=== PATIENT | female | born 1965 | race Caucasian/White ===

== ENCOUNTER 2016-04-29 11:43 | Inpatient (IN) | payer SELFPAY ==
[~2016-04-29] VITALS: Ht 165.1 cm; Wt 70.8 kg
[2016-04-29 12:14] LABS: BASOPHILS % (AUTO) 0.5 % (0.0-2.0); EOSINOPHILS % (AUTO) 0.9 % (1.0-6.0); HEMATOCRIT 42.7 % (36-46); HEMOGLOBIN 13.9 g/dL (12.0-16.0); LYMPHOCYTES # (AUTO) 1.9 K/uL (1.0-4.8); LYMPHOCYTES % (AUTO) 18.8 % (22.0-44.0); MEAN CORPUSCULAR HEMOGLOBIN 29.3 pg (26.0-34.0); MEAN CORPUSCULAR HGB CONC 32.6 G/dL (31.0-37.0); MEAN CORPUSCULAR VOLUME 90 fL (80-100); MONOCYTES # (AUTO) 0.4 K/uL (0.1-1.0); MONOCYTES % (AUTO) 3.5 % (2.0-9.0); NEUTROPHILS # (AUTO) 7.7 K/uL (1.8-7.7); NEUTROPHILS % (AUTO) 76.3 % (40.0-70.0); PLATELET COUNT (AUTO) 259 K/uL (150-450); RED BLOOD CELL COUNT(AUTO) 4.75 MIL/uL (4.00-5.20); RED CELL DISTRIBUTION WIDTH 12.7 % (11.5-14.5)
[2016-04-29 12:49] LABS: ANION GAP 12 mmol/L (8-16); CARBON DIOXIDE 25 mmol/L (22-29); CHLORIDE 103 mmol/L (98-107); CREATININE 0.88 mg/dL (0.60-1.30); GLOMERULAR FILTR. RATE CALC > 60 mL/min (>60); POTASSIUM 3.5 mmol/L (3.5-5.1); SODIUM SERUM 140 mmol/L (136-145); UREA NITROGEN, BLOOD 19 mg/dL (7-18)
[2016-04-29 12:56] LABS: ALANINE AMINOTRANSFERASE 22 U/L (12-78); ALBUMIN 4.4 g/dL (3.4-5.0); ASPARTATE AMINOTRANSFERASE 18 U/L (15-37); BILIRUBIN,TOTAL 1.6 mg/dL (0.1-1.0); TOTAL PROTEIN, SERUM 8.6 g/dL (6.4-8.2)
[2016-04-29] MEDS ORDERED: LORazepam 1 MG TABLET PO ONE (19:15)
[2016-04-29] MEDS ORDERED: LORazepam 2 MG TABLET PO PRN (19:30)
[2016-04-29] MEDS ORDERED: HALOPERIDOL 5 MG TABLET PO PRN (19:30)
[2016-04-29] MEDS ORDERED: ZOLPIDEM TARTRATE 10 MG TABLET PO PRN (19:30)
[2016-04-29 22:01] LABS: APPEARANCE,URINE CLEAR (CLEAR); GLUCOSE, URINE (UA) NEGATIVE (NEGATIVE); KETONES,URINE TRACE mg/dL (NEGATIVE); LEUKOCYTE ESTERASE ,URINE NEGATIVE (NEGATIVE); OCCULT BLOOD,URINE TRACE (NEGATIVE); PH,URINE 6.5 (5.0-8.0); PROTEIN,URINE NEGATIVE (NEGATIVE)
[2016-04-29 22:02] LABS: ADD UA MICROSCOPIC YES
[2016-04-29 22:13] LABS: RBC,URINE 0-2 /HPF (0-2); SQUAMOUS EPITHELIAL CELL,UR Rare /LPF (None Seen); WBC,URINE 0-2 /HPF (0-5)
[2016-04-29 22:15] VITALS: BP 166/114
[2016-04-29] MEDS ORDERED: INFLUENZA VIRUS VACCINE QVS 2016-17 (3YR+)/PF 60 MCG/0.5 ML SYRINGE IM ONE (22:15)
[2016-04-29 22:44] VITALS: BP 195/115
[2016-04-29] MEDS ORDERED: CloNIDine HCL 0.1 MG TABLET PO ONE (22:45)
[2016-04-30 06:14] VITALS: BP 147/90
[2016-04-30 08:30] VITALS: BP 149/95
[2016-04-30] MEDS: AmLODIPine BESYLATE 2.5 MG TABLET PO SCH (09:40)
[2016-04-30 17:27] VITALS: BP 145/95
[2016-04-30] MEDS ORDERED: ACETAMINOPHEN 325 MG TABLET PO PRN (19:30)
[2016-04-30] MEDS ORDERED: IBUPROFEN 400 MG TABLET PO PRN (19:30)
[2016-05-01 07:35] LABS: CHOL/HDL RATIO 2.2 (3.9-5.7); THYROID STIMULATING HORMONE 1.74 uIU/mL (0.36-3.74)
[2016-05-01 07:39] LABS: HEMOGLOBIN A1C 5.6 % (4.5-6.2)
[2016-05-01] MEDS: AmLODIPine BESYLATE 2.5 MG TABLET PO SCH (09:29)
[2016-05-01 10:51] VITALS: BP 146/95
[2016-05-01 20:05] VITALS: BP 151/78
[2016-05-01] MEDS: RisperiDONE 0.5 MG TABLET PO SCH (20:44)
[2016-05-02 08:00] VITALS: BP 155/99
[2016-05-02] MEDS: AmLODIPine BESYLATE 2.5 MG TABLET PO SCH (08:15)
[2016-05-02 16:17] VITALS: BP 131/81
[2016-05-02] MEDS: RisperiDONE 0.5 MG TABLET PO SCH (20:25)
[2016-05-03 08:00] VITALS: BP 139/71
[2016-05-03] MEDS: AmLODIPine BESYLATE 2.5 MG TABLET PO SCH (08:56)
[2016-05-03 16:35] VITALS: BP 143/81
[2016-05-03] MEDS: RisperiDONE 0.5 MG TABLET PO SCH (20:38)
[2016-05-04] MEDS: AmLODIPine BESYLATE 2.5 MG TABLET PO SCH (08:32)
[2016-05-04 09:00] VITALS: BP 125/77
[2016-05-04] MEDS ORDERED: RISP.5 PO (15:04)
[2016-05-04] MEDS ORDERED: AMLO2.5T PO (15:05)
== END 2016-05-04 16:30 | disposition home or self-care (01) | DRG 885 ==
LOC: EMS 11:46 → 3EI 22:01
PROVIDERS: ADMIT Psychiatry & Neurology Psychiatry; ATTEND Psychiatry & Neurology Psychiatry
DX: F25.9 Schizoaffective disorder, unspecified (principal); I10 Essential (primary) hypertension; E80.6 Other disorders of bilirubin metabolism; R73.9 Hyperglycemia, unspecified; Z28.21 Immunization not carried out because of patient refusal
CPT/HCPCS: 83036; 84443; 99285; G0480

== ENCOUNTER 2018-01-26 22:27 | Emergency (ER) | payer SELFPAY ==
[~2018-01-26] VITALS: Ht 165.1 cm; Wt 65.9 kg
[~2018-01-26 22:27] MED LIST: AMLO2.5T3 PO; RISP.5 PO
[2018-01-26 22:56] LABS: BASOPHILS % (AUTO) 0.9 % (0.0-2.0); EOSINOPHILS % (AUTO) 0.9 % (1.0-6.0); HEMATOCRIT 38.6 % (36-46); HEMOGLOBIN 13.1 g/dL (12.0-16.0); LYMPHOCYTES # (AUTO) 3.2 K/uL (1.0-4.8); LYMPHOCYTES % (AUTO) 25.6 % (22.0-44.0); MEAN CORPUSCULAR HGB CONC 33.9 G/dL (31.0-37.0); MEAN CORPUSCULAR VOLUME 89 fL (80-100); MONOCYTES # (AUTO) 0.9 K/uL (0.1-1.0); MONOCYTES % (AUTO) 7.2 % (2.0-9.0); NEUTROPHILS # (AUTO) 8.2 K/uL (1.8-7.7); NEUTROPHILS % (AUTO) 65.4 % (40.0-70.0); PLATELET COUNT (AUTO) 290 K/uL (150-450); RED BLOOD CELL COUNT(AUTO) 4.36 MIL/uL (4.00-5.20); RED CELL DISTRIBUTION WIDTH 13.3 % (11.5-14.5)
[2018-01-26 23:14] LABS: ANION GAP 14 mmol/L (8-16); CALCIUM, TOTAL 9.1 mg/dL (8.8-10.5); CARBON DIOXIDE 25 mmol/L (22-29); CHLORIDE 103 mmol/L (98-107); CREATININE 0.86 mg/dL (0.60-1.30); GLOMERULAR FILTR. RATE CALC > 60 mL/min (>60); GLUCOSE,RANDOM 107 mg/dL (70-110); POTASSIUM 3.6 mmol/L (3.5-5.1); SODIUM SERUM 142 mmol/L (136-145); UREA NITROGEN, BLOOD 22 mg/dL (7-18)
[2018-01-26 23:20] LABS: ALANINE AMINOTRANSFERASE 26 U/L (12-78); ALBUMIN 4.3 g/dL (3.4-5.0); ALKALINE PHOSPHATASE 91 U/L (46-116); ASPARTATE AMINOTRANSFERASE 20 U/L (15-37); BILIRUBIN,TOTAL 1.4 mg/dL (0.1-1.0); TOTAL PROTEIN, SERUM 8.6 g/dL (6.4-8.2)
[2018-01-26 23:52] LABS: AMPHET/METH SCREEN,URINE NEGATIVE (NEGATIVE); BARBITURATE SCREEN, URINE NEGATIVE (NEGATIVE); BENZODIAZEPINES SCREEN,URINE NEGATIVE (NEGATIVE); CANNABINOID SCREEN,URINE NEGATIVE (NEGATIVE); COCAINE SCREEN,URINE NEGATIVE (NEGATIVE); METHADONE SCREEN, URINE NEGATIVE (NEGATIVE); OPIATE SCREEN,URINE NEGATIVE (NEGATIVE)
[2018-01-27 00:04] LABS: PHENCYCLIDINE SCREEN,URINE NEGATIVE (NEGATIVE)
[2018-01-27 00:30] VITALS: BP 162/60
== END 2018-01-27 00:57 | disposition home or self-care (01) ==
LOC: EMS 22:28
DX: F32.9 Major depressive disorder, single episode, unspecified (principal); F20.9 Schizophrenia, unspecified; I10 Essential (primary) hypertension; Z79.899 Other long term (current) drug therapy
CPT/HCPCS: 36415; 80053; 80307; 85025; 99284; G0480

== ENCOUNTER 2019-01-05 18:20 | Inpatient (IN) | payer MEDICAID ==
[~2019-01-05] VITALS: Ht 170.2 cm; Wt 95.3 kg
[~2019-01-05 18:20] MED LIST changes: -AMLO2.5T3 PO; +AMLO2.5T4 PO
[2019-01-05] MEDS ORDERED: LORA-1000 PO (18:36)
[2019-01-05] MEDS ORDERED: QUET100T PO (18:36)
[2019-01-05 19:41] LABS: BASOPHILS % (AUTO) 0.6 % (0.0-2.0); EOSINOPHILS % (AUTO) 2.1 % (1.0-6.0); HEMOGLOBIN 12.7 g/dL (12.0-16.0); LYMPHOCYTES # (AUTO) 4.2 K/uL (1.0-4.8); LYMPHOCYTES % (AUTO) 28.8 % (22.0-44.0); MEAN CORPUSCULAR HGB CONC 33.5 G/dL (31.0-37.0); MEAN CORPUSCULAR VOLUME 90 fL (80-100); MONOCYTES # (AUTO) 1.1 K/uL (0.1-1.0); MONOCYTES % (AUTO) 7.4 % (2.0-9.0); NEUTROPHILS # (AUTO) 8.9 K/uL (1.8-7.7); NEUTROPHILS % (AUTO) 61.1 % (40.0-70.0); PLATELET COUNT (AUTO) 283 K/uL (150-450); RED BLOOD CELL COUNT(AUTO) 4.24 MIL/uL (4.00-5.20); RED CELL DISTRIBUTION WIDTH 13.9 % (11.5-14.5)
[2019-01-05 19:51] LABS: ANION GAP 10 mmol/L (8-16); CALCIUM, TOTAL 8.7 mg/dL (8.8-10.5); CARBON DIOXIDE 27 mmol/L (22-29); CHLORIDE 101 mmol/L (98-107); CREATININE 1.02 mg/dL (0.60-1.30); GLOMERULAR FILTR. RATE CALC 56 mL/min (>60); GLUCOSE,RANDOM 110 mg/dL (70-110); POTASSIUM 3.6 mmol/L (3.5-5.1); SODIUM SERUM 138 mmol/L (136-145); UREA NITROGEN, BLOOD 22 mg/dL (7-18)
[2019-01-05 19:57] LABS: ALANINE AMINOTRANSFERASE 107 U/L (12-78); ALKALINE PHOSPHATASE 96 U/L (46-116); ASPARTATE AMINOTRANSFERASE 53 U/L (15-37); BILIRUBIN,TOTAL 1.1 mg/dL (0.1-1.0); TOTAL PROTEIN, SERUM 8.4 g/dL (6.4-8.2)
[2019-01-05 21:34] LABS: AMPHET/METH SCREEN,URINE NEGATIVE (NEGATIVE); BARBITURATE SCREEN, URINE NEGATIVE (NEGATIVE); BENZODIAZEPINES SCREEN,URINE NEGATIVE (NEGATIVE); CANNABINOID SCREEN,URINE NEGATIVE (NEGATIVE); COCAINE SCREEN,URINE NEGATIVE (NEGATIVE); METHADONE SCREEN, URINE NEGATIVE (NEGATIVE); OPIATE SCREEN,URINE NEGATIVE (NEGATIVE)
[2019-01-05 21:36] LABS: PHENCYCLIDINE SCREEN,URINE NEGATIVE (NEGATIVE)
[2019-01-06] MEDS ORDERED: LORazepam 2 MG TABLET PO PRN (01:45)
[2019-01-06] MEDS ORDERED: ZOLPIDEM TARTRATE 10 MG TABLET PO PRN (01:45)
[2019-01-06] MEDS ORDERED: HALOPERIDOL 5 MG TABLET PO PRN (01:45)
[2019-01-06 04:57] LABS: APPEARANCE,URINE TURBID (CLEAR); BILIRUBIN,URINE NEGATIVE (NEGATIVE); GLUCOSE, URINE (UA) NEGATIVE (NEGATIVE); KETONES,URINE TRACE mg/dL (NEGATIVE); LEUKOCYTE ESTERASE ,URINE NEGATIVE (NEGATIVE); NITRATE,URINE NEGATIVE (NEGATIVE); OCCULT BLOOD,URINE TRACE (NEGATIVE); PH,URINE 5.5 (5.0-8.0); PROTEIN,URINE NEGATIVE (NEGATIVE); UROBILINOGEN,URINE 0.2 mg/dL (<=1.0)
[2019-01-06 05:13] LABS: AMORPHOUS SEDIMENT,UR Many /LPF (None Seen); BACTERIA,URINE Moderate /HPF (None Seen); RBC,URINE 0-2 /HPF (0-2); SQUAMOUS EPITHELIAL CELL,UR Rare /LPF (None Seen); WBC,URINE 0-2 /HPF (0-5)
[2019-01-06 07:11] VITALS: BP 150/94
[2019-01-06] MEDS ORDERED: PNEUMOCOCCAL VACCINE POLYVALENT 0.5 ML VIAL [PPSV23] IM ONE (07:15)
[2019-01-06] MEDS ORDERED: INFLUENZA VIRUS VACCINE QVS 2019-20 (3YR+)/PF 60 MCG/0.5 ML SYRINGE IM ONE (07:15)
[2019-01-06 08:34] VITALS: BP 139/72
[2019-01-06] MEDS: AmLODIPine BESYLATE 2.5 MG TABLET PO SCH (08:59)
[2019-01-06] MEDS ORDERED: PETROLATUM,WHITE 28 GM JELLY TP PRN (10:30)
[2019-01-06] MEDS ORDERED: ACETAMINOPHEN 325 MG TABLET PO PRN (10:30)
[2019-01-06] MEDS ORDERED: ALBUTEROL SULFATE HFA 90 MCG/PUFF 8 GM INHALER IH PRN (10:30)
[2019-01-06] MEDS ORDERED: MAGNESIUM HYDROXIDE SUSPENSION 30 ML UDCUP PO PRN (10:30)
[2019-01-06] MEDS ORDERED: LOPERAMIDE HCL 2 MG CAPSULE PO PRN (10:30)
[2019-01-06] MEDS ORDERED: GuaiFENesin/D-METHORPHAN [SUGAR-FREE] 200-20MG/10 ML SYRUP UDCUP PO PRN (10:30)
[2019-01-06] MEDS ORDERED: MAG HYDROX/AL HYDROX/SIMETH ES 30 ML SUSPENSION UDCUP PO PRN (10:30)
[2019-01-06] MEDS ORDERED: DOCUSATE SODIUM 100 MG CAPSULE PO PRN (10:30)
[2019-01-06] MEDS ORDERED: NICOTINE 14 MG/24 HOUR PATCH TD PRN (10:30)
[2019-01-06] MEDS ORDERED: ONDANSETRON HCL 4 MG TABLET PO PRN (10:30)
[2019-01-06] MEDS ORDERED: CloNIDine HCL 0.1 MG TABLET PO PRN (10:30)
[2019-01-06] MEDS ORDERED: IBUPROFEN 400 MG TABLET PO PRN (10:30)
[2019-01-06] MEDS: RisperiDONE 0.5 MG TABLET PO SCH ×2 (11:30→20:25)
[2019-01-06 20:35] VITALS: BP_SYST 111; BP_SYST 140; BP_DIAS 62; BP_DIAS 70
[2019-01-07 06:31] VITALS: BP 131/72
[2019-01-07 07:47] LABS: BASOPHILS % (AUTO) 0.5 % (0.0-2.0); EOSINOPHILS % (AUTO) 2.9 % (1.0-6.0); HEMOGLOBIN 12.7 g/dL (12.0-16.0); LYMPHOCYTES # (AUTO) 3.2 K/uL (1.0-4.8); LYMPHOCYTES % (AUTO) 28.9 % (22.0-44.0); MEAN CORPUSCULAR HEMOGLOBIN 30.2 pg (26.0-34.0); MEAN CORPUSCULAR HGB CONC 33.3 G/dL (31.0-37.0); MEAN CORPUSCULAR VOLUME 91 fL (80-100); MONOCYTES # (AUTO) 0.7 K/uL (0.1-1.0); MONOCYTES % (AUTO) 6.5 % (2.0-9.0); NEUTROPHILS # (AUTO) 6.8 K/uL (1.8-7.7); NEUTROPHILS % (AUTO) 61.2 % (40.0-70.0); PLATELET COUNT (AUTO) 261 K/uL (150-450); RED CELL DISTRIBUTION WIDTH 14.1 % (11.5-14.5)
[2019-01-07 08:04] LABS: CHOL/HDL RATIO 2.8 (3.9-5.7); FREE T4 (FREE THYROXINE) 0.94 ng/dL (0.76-1.46); THYROID STIMULATING HORMONE 1.23 uIU/mL (0.36-3.74)
[2019-01-07] MEDS: AmLODIPine BESYLATE 2.5 MG TABLET PO SCH (08:09)
[2019-01-07] MEDS: RisperiDONE 0.5 MG TABLET PO SCH ×2 (08:11→20:16)
[2019-01-07 08:15] VITALS: BP 133/90
[2019-01-07 16:08] VITALS: BP 120/72
[2019-01-08 00:30] VITALS: BP 137/78
[2019-01-08] MEDS: AmLODIPine BESYLATE 2.5 MG TABLET PO SCH (08:24)
[2019-01-08 08:29] VITALS: BP 137/81
[2019-01-08] MEDS: RisperiDONE 0.5 MG TABLET PO SCH ×2 (08:31→20:23)
[2019-01-08 16:14] VITALS: BP 130/66
[2019-01-09 03:46] VITALS: BP 128/70
[2019-01-09] MEDS: AmLODIPine BESYLATE 2.5 MG TABLET PO SCH (08:17)
[2019-01-09 08:30] VITALS: BP 140/88
[2019-01-09] MEDS: RisperiDONE 0.5 MG TABLET PO SCH ×2 (09:00→20:18)
[2019-01-09 16:13] VITALS: BP 145/80
[2019-01-09] MEDS ORDERED: HALOPERIDOL LACTATE 5 MG/ML VIAL ONE (19:44)
[2019-01-09] MEDS ORDERED: LORazepam 2 MG/ML VIAL ONE (19:44)
[2019-01-09] MEDS ORDERED: DiphenhydrAMINE HCL 50 MG/ML VIAL ONE (19:44)
[2019-01-09] MEDS ORDERED: LORazepam 2 MG/ML VIAL IM ONE (20:00)
[2019-01-09] MEDS ORDERED: HALOPERIDOL LACTATE 5 MG/ML VIAL IM ONE (20:00)
[2019-01-09] MEDS ORDERED: DiphenhydrAMINE HCL 50 MG/ML VIAL IM ONE (20:00)
[2019-01-10 06:37] VITALS: BP 140/90
[2019-01-10 08:18] VITALS: BP 134/87
[2019-01-10] MEDS: AmLODIPine BESYLATE 2.5 MG TABLET PO SCH (08:29)
[2019-01-10] MEDS: RisperiDONE 0.5 MG TABLET PO SCH ×3 (08:37→21:00)
[2019-01-10 16:12] VITALS: BP 106/60
[2019-01-11 01:10] VITALS: BP 122/69
[2019-01-11] MEDS: AmLODIPine BESYLATE 2.5 MG TABLET PO SCH (08:11)
[2019-01-11 08:18] VITALS: BP 138/83
[2019-01-11] MEDS: RisperiDONE 0.5 MG TABLET PO SCH ×2 (08:22→20:21)
[2019-01-11 16:00] VITALS: BP 138/84
[2019-01-12 02:25] VITALS: BP 132/78
[2019-01-12] MEDS: AmLODIPine BESYLATE 2.5 MG TABLET PO SCH (08:11)
[2019-01-12] MEDS: RisperiDONE 0.5 MG TABLET PO SCH ×2 (08:22→20:33)
[2019-01-12 08:31] VITALS: BP 142/67
[2019-01-12 16:23] VITALS: BP 137/78
[2019-01-13 00:15] VITALS: BP 112/70
[2019-01-13 08:19] VITALS: BP 138/87
[2019-01-13] MEDS: AmLODIPine BESYLATE 2.5 MG TABLET PO SCH (08:40)
[2019-01-13] MEDS: RisperiDONE 0.5 MG TABLET PO SCH ×2 (08:49→20:14)
[2019-01-13] MEDS ORDERED: RISP1 PO (11:48)
[2019-01-13 17:36] VITALS: BP 145/88
[2019-01-14 00:33] VITALS: BP 138/82
[2019-01-14 07:37] LABS: ANION GAP 9 mmol/L (8-16); CALCIUM, TOTAL 9.6 mg/dL (8.8-10.5); CARBON DIOXIDE 27 mmol/L (22-29); CHLORIDE 103 mmol/L (98-107); CREATININE 0.86 mg/dL (0.60-1.30); GLOMERULAR FILTR. RATE CALC > 60 mL/min (>60); GLUCOSE,RANDOM 115 mg/dL (70-110); POTASSIUM 4.5 mmol/L (3.5-5.1); SODIUM SERUM 139 mmol/L (136-145); UREA NITROGEN, BLOOD 29 mg/dL (7-18)
[2019-01-14] MEDS: AmLODIPine BESYLATE 2.5 MG TABLET PO SCH (08:19)
[2019-01-14] MEDS: RisperiDONE 0.5 MG TABLET PO SCH ×2 (08:19→21:00)
[2019-01-14 08:26] VITALS: BP 136/80
[2019-01-14 16:23] VITALS: BP 121/73
[2019-01-15 06:31] VITALS: BP 118/78
[2019-01-15 08:03] VITALS: BP 136/76
[2019-01-15] MEDS: AmLODIPine BESYLATE 2.5 MG TABLET PO SCH (08:19)
[2019-01-15] MEDS: RisperiDONE 0.5 MG TABLET PO SCH ×2 (08:24→20:14)
[2019-01-15 16:08] VITALS: BP 131/73
[2019-01-16 06:14] VITALS: BP 118/67
[2019-01-16 08:25] VITALS: BP 135/88
[2019-01-16] MEDS: AmLODIPine BESYLATE 2.5 MG TABLET PO SCH (08:31)
[2019-01-16] MEDS: RisperiDONE 0.5 MG TABLET PO SCH ×2 (08:32→09:00)
== END 2019-01-16 13:30 | disposition left against medical advice (07) | DRG 750 ==
LOC: EMS 18:20 → B2S 01-06 04:30 → B3A 01-14 10:23
PROVIDERS: ADMIT Psychiatry & Neurology Child & Adolescent Psychiatry; ATTEND Psychiatry & Neurology Child & Adolescent Psychiatry
DX: F20.0 Paranoid schizophrenia (principal); R74.0 Nonspecific elevation of levels of transaminase and lactic acid dehydrogenase [LDH]; D72.829 Elevated white blood cell count, unspecified; I10 Essential (primary) hypertension; K21.9 Gastro-esophageal reflux disease without esophagitis
CPT/HCPCS: 84439; 84443; 87086; G0480; J1200; J1630; J2060

== ENCOUNTER 2021-05-18 11:20 | Inpatient (IN) | payer MEDICAID, OTHER ==
[~2021-05-18] VITALS: Ht 165.1 cm; Wt 78.1 kg
[~2021-05-18 11:20] MED LIST changes: -AMLO2.5T4 PO; +AMLO2.5T96 PO; -RISP.5 PO; +RISP1TAB48 PO
[2021-05-18] MEDS ORDERED: LORazepam 2 MG/ML VIAL IM ONE (11:30)
[2021-05-18] MEDS ORDERED: DiphenhydrAMINE HCL 50 MG/ML VIAL IM ONE (11:30)
[2021-05-18] MEDS ORDERED: HALOPERIDOL LACTATE 5 MG/ML VIAL IM ONE (11:30)
[2021-05-18 11:52] LABS: BASOPHILS % (AUTO) 0.6 % (0.0-2.0); EOSINOPHILS % (AUTO) 0.7 % (1.0-6.0); HEMATOCRIT 40.2 % (36-46); HEMOGLOBIN 13.8 g/dL (12.0-16.0); LYMPHOCYTES # (AUTO) 3.7 K/uL (1.0-4.8); MEAN CORPUSCULAR HEMOGLOBIN 30.1 pg (26.0-34.0); MEAN CORPUSCULAR HGB CONC 34.3 G/dL (31.0-37.0); MEAN CORPUSCULAR VOLUME 88 fL (80-100); MONOCYTES # (AUTO) 0.8 K/uL (0.1-1.0); MONOCYTES % (AUTO) 6.1 % (2.0-9.0); NEUTROPHILS % (AUTO) 63.6 % (40.0-70.0); PLATELET COUNT (AUTO) 237 K/uL (150-450); RED BLOOD CELL COUNT(AUTO) 4.58 MIL/uL (4.00-5.20)
[2021-05-18 11:59] LABS: ANION GAP 11 mmol/L (8-16); CALCIUM, TOTAL 9.7 mg/dL (8.8-10.5); CARBON DIOXIDE 25 mmol/L (22-29); CHLORIDE 98 mmol/L (98-107); CREATININE 0.86 mg/dL (0.60-1.30); GLOMERULAR FILTR. RATE CALC > 60 mL/min (>60); GLUCOSE,RANDOM 304 mg/dL (70-110); POTASSIUM 3.9 mmol/L (3.5-5.1); SODIUM SERUM 134 mmol/L (136-145); UREA NITROGEN, BLOOD 23 mg/dL (7-18)
[2021-05-18 12:04] LABS: ALANINE AMINOTRANSFERASE 119 U/L (12-78); ALBUMIN 4.2 g/dL (3.4-5.0); ALKALINE PHOSPHATASE 121 U/L (46-116); ASPARTATE AMINOTRANSFERASE 56 U/L (15-37); BILIRUBIN,TOTAL 1.5 mg/dL (0.1-1.0); TOTAL PROTEIN, SERUM 9.5 g/dL (6.4-8.2)
[2021-05-18] MEDS ORDERED: ZOLPIDEM TARTRATE 10 MG TABLET PO PRN (12:45)
[2021-05-18] MEDS ORDERED: LORazepam 2 MG TABLET PO PRN (12:45)
[2021-05-18] MEDS ORDERED: QUEtiapine FUMARATE 100 MG TABLET PO PRN (12:45)
[2021-05-18 15:28] LABS: COVID AG,FIA SOURCE NASOPHARYNGEAL
[2021-05-19] MEDS ORDERED: PNEUMOCOCCAL VACCINE POLYVALENT 0.5 ML VIAL [PPSV23] IM. ONE (03:00)
[2021-05-19 04:15] VITALS: BP 127/73
[2021-05-19] MEDS ORDERED: DEXTROSE 50%-WATER 25 GM/50 ML SYRINGE IVP PRN (14:30)
[2021-05-19] MEDS: RisperiDONE 1 MG TABLET PO SCH ×2 (14:45→20:34)
[2021-05-19 16:00] VITALS: BP 138/77
[2021-05-19 16:46] LABS: GLUCOMETER DEV NAME(LOC) 3E.C; GLUCOSE,POINT OF CARE 289 MG/DL (70-110)
[2021-05-19] MEDS: INSULIN LISPRO 100 UNITS/ML SQ PRN ×3 (17:37→20:50)
[2021-05-19 20:36] LABS: GLUCOMETER DEV NAME(LOC) 3E.C; GLUCOSE,POINT OF CARE 383 MG/DL (70-110)
[2021-05-20 06:36] LABS: GLUCOMETER DEV NAME(LOC) 3E.C; GLUCOSE,POINT OF CARE 230 MG/DL (70-110)
[2021-05-20] MEDS: INSULIN LISPRO 100 UNITS/ML SQ PRN ×3 (06:56→21:14)
[2021-05-20 08:35] VITALS: BP 146/88
[2021-05-20] MEDS: RisperiDONE 1 MG TABLET PO SCH ×3 (09:00→21:38)
[2021-05-20] MEDS: AmLODIPine BESYLATE 2.5 MG TABLET PO SCH (10:14)
[2021-05-20 16:09] VITALS: BP 152/89
[2021-05-20 16:41] LABS: GLUCOMETER DEV NAME(LOC) 3E.C; GLUCOSE,POINT OF CARE 307 MG/DL (70-110)
[2021-05-20 21:26] LABS: GLUCOMETER DEV NAME(LOC) 3E.C; GLUCOSE,POINT OF CARE 394 MG/DL (70-110)
[2021-05-21 06:16] LABS: GLUCOMETER DEV NAME(LOC) 3E.C; GLUCOSE,POINT OF CARE 285 MG/DL (70-110)
[2021-05-21] MEDS: INSULIN LISPRO 100 UNITS/ML SQ PRN ×3 (06:48→21:43)
[2021-05-21] MEDS: RisperiDONE 1 MG TABLET PO SCH ×3 (09:00→21:00)
[2021-05-21 09:06] VITALS: BP 101/68
[2021-05-21] MEDS: AmLODIPine BESYLATE 2.5 MG TABLET PO SCH (10:24)
[2021-05-21 10:31] LABS: GLUCOMETER DEV NAME(LOC) 3E.C; GLUCOSE,POINT OF CARE 353 MG/DL (70-110)
[2021-05-21 16:07] VITALS: BP 140/90
[2021-05-21 16:22] LABS: GLUCOMETER DEV NAME(LOC) 3E.C; GLUCOSE,POINT OF CARE 286 MG/DL (70-110)
[2021-05-21 21:16] LABS: GLUCOMETER DEV NAME(LOC) 3E.C; GLUCOSE,POINT OF CARE 359 MG/DL (70-110)
[2021-05-22 06:06] LABS: GLUCOMETER DEV NAME(LOC) 3E.C; GLUCOSE,POINT OF CARE 325 MG/DL (70-110)
[2021-05-22] MEDS: INSULIN LISPRO 100 UNITS/ML SQ PRN ×4 (06:39→21:21)
[2021-05-22] MEDS: RisperiDONE 1 MG TABLET PO SCH ×2 (09:00→20:10)
[2021-05-22 09:04] VITALS: BP 135/90
[2021-05-22] MEDS: AmLODIPine BESYLATE 2.5 MG TABLET PO SCH (09:56)
[2021-05-22 16:00] LABS: GLUCOMETER DEV NAME(LOC) 3E.C; GLUCOSE,POINT OF CARE 295 MG/DL (70-110)
[2021-05-22 16:10] VITALS: BP 145/95
[2021-05-22 16:32] LABS: GLUCOMETER DEV NAME(LOC) 3E.C; GLUCOSE,POINT OF CARE 314 MG/DL (70-110)
[2021-05-22 21:31] LABS: GLUCOMETER DEV NAME(LOC) 3E.C; GLUCOSE,POINT OF CARE 286 MG/DL (70-110)
[2021-05-23 06:11] LABS: GLUCOMETER DEV NAME(LOC) 3E.C; GLUCOSE,POINT OF CARE 232 MG/DL (70-110)
[2021-05-23] MEDS: INSULIN LISPRO 100 UNITS/ML SQ PRN ×3 (06:35→17:16)
[2021-05-23 07:34] LABS: CHOL/HDL RATIO 3.3 (3.9-5.7)
[2021-05-23 08:15] VITALS: BP 145/107
[2021-05-23] MEDS: RisperiDONE 1 MG TABLET PO SCH (08:18)
[2021-05-23] MEDS: AmLODIPine BESYLATE 2.5 MG TABLET PO SCH (08:21)
[2021-05-23 11:51] LABS: GLUCOMETER DEV NAME(LOC) 3E.C; GLUCOSE,POINT OF CARE 208 MG/DL (70-110)
[2021-05-23 16:22] VITALS: BP 132/96
[2021-05-23 19:06] LABS: GLUCOMETER DEV NAME(LOC) 3E.C; GLUCOSE,POINT OF CARE 311 MG/DL (70-110)
[2021-05-26 11:26] LABS: GLUCOMETER DEV NAME(LOC) 3E.C; GLUCOSE,POINT OF CARE 403 MG/DL (70-110)
== END 2021-05-23 17:10 | disposition home or self-care (01) | DRG 750 ==
LOC: EMS 11:20 → 3EC 05-19 00:22 → UNDOADMIN 05-19 03:15
PROVIDERS: ADMIT Psychiatry & Neurology Psychiatry; ATTEND Psychiatry & Neurology Psychiatry
DX: F25.0 Schizoaffective disorder, bipolar type (principal); E87.1 Hypo-osmolality and hyponatremia; I10 Essential (primary) hypertension; Z20.822 Contact with and (suspected) exposure to COVID-19; D72.829 Elevated white blood cell count, unspecified; Z79.899 Other long term (current) drug therapy
CPT/HCPCS: 80053; 80061; 82962; 83036; 85025; 99285; G0480